=== PATIENT | male | born 1945 | race American Indian/Alaskan Native ===

== ENCOUNTER 2017-05-25 10:07 | Outpatient (CLI) | payer MEDICARE ==
--- NOTE | 2017-05-25 15:30 | Cat Scan Report ---
FINAL REPORT PROCEDURE: CT ABDOMEN PELVIS WO CON TECHNIQUE: Computerized axial tomography of the abdomen and pelvis was performed without intravenous contrast. This study is performed without intravascular contrast material and its sensitivity for abdominal and pelvic pathology, including neoplasms, inflammation, abscess, free fluid, thrombosis, arterial dissection and infarction, is reduced compared with a contrast enhanced study. HISTORY: MALIGNANT NEOPLASM OF PROSTATE COMPARISON: No prior studies are available for comparison. FINDINGS: Lower Lung weldon: There is minimal dependent atelectasis. Lung bases otherwise are clear. Upper Abdomen: There is a 6.4 millimeter low-density nodule in the right lobe of the liver centrally. This is difficult to characterize given its small size and lack of contrast. It may represent a small cyst. This could be confirmed with ultrasound if clinically indicated. The liver is otherwise unremarkable. The gallbladder showed no abnormalities. The adrenal glands, the pancreas and spleen are unremarkable. Kidneys, Ureters and Urinary bladder: The kidneys and ureters are unremarkable. No masses calculi or hydronephrosis visualized. Urinary bladder is nearly empty and shows no gross abnormality. Retroperitoneum: Atherosclerotic changes are seen in the abdominal aorta. No aneurysm is visualized. Nonspecific subcentimeter lymph nodes are seen in the retroperitoneum. No pathologically enlarged lymph nodes are identified. Bowel: Mild diverticulosis is seen in the sigmoid colon without evidence of diverticulitis. Bowel loops otherwise are unremarkable. Normal-appearing appendix is seen in the right lower quadrant. Reproductive organs: Postsurgical changes are seen in the lower pelvis. There appears to have been prostatectomy. Surgical clips are visualized. Other: Penile implants in place. There is a reservoir implanted in the right lower pelvis anteriorly. Diffuse degenerative changes are seen in the lumbar spine. No acute bony abnormalities are identified. IMPRESSION: Indeterminate 6.4 millimeter low-density nodule right lobe of the liver centrally. This may represent a cyst although not confirmed with this exam. If clinically indicated ultrasound of the liver could be obtained for further evaluation. Mild colonic diverticulosis without evidence of diverticulitis. Penile implant in place. [place] seen right lower pelvis anteriorly. Previous prostatectomy. No pathologically enlarged lymph nodes are seen in the pelvis or abdomen..
--- NOTE | 2017-05-28 08:43 | Nuclear Medicine Report ---
BONE SCAN: History: Malignant neoplasm of prostate. Comparison: No previous bone scan. Correlation is made with CT abdomen pelvis without contrast performed the same day. After injection of isotope, gamma camera imaging of the bony system was done. There is a normal uptake of isotope throughout the bony structures without areas of significantly increased or decreased uptake to suggest metastatic disease. Mild degenerative uptake is noted in the shoulders, lumbar spine, bilateral knees and bilateral feet. Normal uptake in the urinary system is seen. IMPRESSION: Negative bone scan. No evidence for metastatic disease to the bones. Degenerative uptake as described.
== END 2017-05-25 10:08 | disposition home or self-care (01) ==
LOC: NM 10:07
PROVIDERS: ATTEND Urology
DX: C61 Malignant neoplasm of prostate (principal); J98.11 Atelectasis; K57.30 Diverticulosis of large intestine without perforation or abscess without bleeding; K76.89 Other specified diseases of liver; I70.0 Atherosclerosis of aorta; M47.896 Other spondylosis, lumbar region; Z90.79 Acquired absence of other genital organ(s); Z98.890 Other specified postprocedural states
CPT/HCPCS: 74176; 78306; A9503

== ENCOUNTER 2018-03-08 09:35 | Outpatient (CLI) | payer MEDICARE, OTHER ==
[2018-03-08 10:09] LABS: Hematocrit 43.8 % (35.5-45.6); Hemoglobin 14.2 gm/dl (11.8-15.2); Mean Corpuscular HGB Conc 33 % (32-34); Mean Corpuscular Volume 86 fl (84-94); Platelet Count 323 K/mm3 (140-440); Red Blood Count 5.07 M/mm3 (3.65-5.03); Red Cell Distribution Width 14.3 % (13.2-15.2)
[2018-03-08 11:02] LABS: Alanine Aminotransferase 13 units/L (7-56); Albumin 4.1 g/dL (3.9-5); BUN/Creatinine Ratio 18; Blood Urea Nitrogen 21 mg/dL (9-20); Calcium 10.1 mg/dL (8.4-10.2); Hemolysis Index 6
[2018-03-08 15:11] LABS: Chol/HDL Ratio 3.01 %; HDL Cholesterol 51 mg/dL (40-59); LDL Cholesterol,Direct 91 mg/dL (50-130)
== END 2018-03-08 09:36 | disposition home or self-care (01) ==
LOC: CT 09:35
PROVIDERS: ATTEND Internal Medicine
DX: J39.8 Other specified diseases of upper respiratory tract (principal)
CPT/HCPCS: 36415; 36600; 80053; 80061; 82803; 84436; 84443; 85027

== ENCOUNTER 2018-03-26 09:57 | Outpatient (CLI) | payer MEDICARE, OTHER ==
--- NOTE | 2018-03-26 10:46 | Cat Scan Report ---
CT CHEST WITHOUT CONTRAST: HISTORY: Deviated trachea. COMPARISON: none. TECHNIQUE: Helical CT in 1.25mm intervals without IV contrast. Sagittal and coronal reformatted images. FINDINGS: Thyroid gland: Normal. Tracheobronchial tree: Normal. No significant tracheal deviation is appreciated. Esophagus: Normal. Heart: Normal. Pericardium: Normal. Mediastinum: Normal. No mediastinal mass or adenopathy. Lung Joyner: Normal. Pleural Spaces: Normal. Musculoskeletal: Intact. Moderate thoracic spondylosis is noted. IMPRESSION: Unremarkable CT chest without contrast. No significant tracheal deviation or mediastinal mass/adenopathy is identified.
== END 2018-03-26 09:58 | disposition home or self-care (01) ==
LOC: CT 09:57
PROVIDERS: ATTEND Internal Medicine
DX: J39.8 Other specified diseases of upper respiratory tract (principal)
CPT/HCPCS: 71250